=== PATIENT | male | born 1955 | race Caucasian/White ===

== ENCOUNTER 2020-04-15 19:21 | Emergency (ER) | payer MEDICAID ==
[~2020-04-15] VITALS: Ht 180.3 cm; Wt 68.8 kg
--- NOTE | 2020-04-15 19:40 | NUR ---
PT COMES IN C/O RIGHT HIP/THIGH/LOWER LEG PAIN FOLLOWING A FALL FROM HIS [place]CE 04/10/20. STATES HE WAS SEEN AT [facility] TODAY AND THEY SENT HIM TO THE ED STATING HE HAS A CLOT. ON ASSESSMENT, PT LOWER RIGHT LEG IS COOL, RED, AND SWOLLEN WITH ABRASIONS ON THE GALINDO. REDNESS ALSO NOTED TO THE INNER UPPER RIGHT THIGH. PT STATES FOLLOWING HIS FALL HE HAS BEEN "LAYING IN BED" AND "URINATING IN A GATORADE BOTTLE" DUE TO THE PAIN. HE IS ACCOMPANIED BY HIS SISTER. MONITORS CONNECTED. VSS. WARM BLANKETS PROVIDED
[2020-04-15 20:01] LABS: BASOPHILS % (AUTO) 1 % (0-1); EOSINOPHILS % (AUTO) 1 % (1-7); LYMPHOCYTES % (AUTO) 13 % (22-44); MEAN CORPUSCULAR HEMOGLOBIN 33.3 pg (27.5-34.5); MEAN CORPUSCULAR HGB CONC 34.2 g/dL (33.2-36.2); MEAN PLATELET VOLUME 8.2 fL (7.4-10.4); MONOCYTES % (AUTO) 14 % (2-9); NEUTROPHILS % (AUTO) 71 % (42-75); PLATELET COUNT 196 x10^3/uL (130-400); RED BLOOD COUNT 4.18 x10^6/uL (4.38-5.82); RED CELL DISTRIBUTION WIDTH 13.5 % (9.4-14.8)
[2020-04-15 20:09] LABS: ANION GAP 7 mmol/L (5-15); CALCIUM 8.7 mg/dL (8.5-10.1); CHLORIDE 103 mmol/L (98-107); CREATININE 0.75 mg/dL (0.7-1.3)
[2020-04-15 20:10] LABS: MD NO
[2020-04-15 21:41] VITALS: BP 133/81
== END 2020-04-15 21:43 | disposition home or self-care (01) ==
LOC: ED 21:00
DX: S70.01XA Contusion of right hip, initial encounter (principal); S70.11XA Contusion of right thigh, initial encounter; M79.89 Other specified soft tissue disorders; F17.200 Nicotine dependence, unspecified, uncomplicated; X58.XXXA Exposure to other specified factors, initial encounter; Y93.89 Activity, other specified; Y92.89 Other specified places as the place of occurrence of the external cause; Y99.8 Other external cause status
CPT/HCPCS: 36415; 80048; 85025; 99284